=== PATIENT | male | born 1965 | race Caucasian/White ===

== ENCOUNTER 2019-02-09 22:01 | Emergency (ER) | payer OTHER ==
[2019-02-09] MEDS ORDERED: HYDROcodone/Acetaminophen 5/325 mg Tablet ONE (22:21)
[2019-02-09] MEDS ORDERED: Cyclobenzaprine 10 MG TAB ONE (22:21)
[2019-02-09] MEDS ORDERED: Ibuprofen 800 MG TAB ONE (22:21)
--- NOTE | 2019-02-09 22:30 | RAD ---
XR Tib Fib Rt Leg 2 View HISTORY: Tib-fib injury. COMPARISON: None. FINDINGS: There are no signs of acute fracture or dislocation. IMPRESSION: No acute injury.
== END 2019-02-09 22:30 | disposition home or self-care (01) ==
LOC: MADERS 22:01
DX: M66.0 Rupture of popliteal cyst (principal)